=== PATIENT | male | born 1995 | race Caucasian/White ===

== ENCOUNTER 2018-12-01 15:35 | Emergency (ER) | payer BC ==
[2018-12-01 17:15] LABS: ABS Eosinophils 0.1 10^3/ul (0-0.6); ABS Lymphocytes 1.1 10^3/ul (1.0-4.8); ABS Monocytes 0.4 10^3/ul (0-0.8); ABS Neutrophils 5.1 10^3/ul (1.5-7.7); Eosinophil % 1.4 %; Hematocrit 46 % (42-52); Hemoglobin 15.4 g/dL (14.0-18.0); Lymphocyte % 16.7 %; Mean Corpuscular HGB Conc 34 g/dL (31-36); Mean Corpuscular Hemoglobin 31 pg (27-31); Mean Corpuscular Volume 90 fL (80-94); Mean Platelet Volume 9.5 fL (7.4-10.4); Platelet Count 215 10^3/uL (150-450); Red Blood Count 5.05 10^6 /uL (4.18-5.48); Red Cell Distribution Width 13 % (10-15); White Blood Count 6.7 10^3/uL (3.5-10.8)
[2018-12-01 17:26] LABS: Albumin 4.9 g/dL (3.2-5.2); Albumin/Globulin Ratio 1.9 (1-3); Calcium 9.5 mg/dL (8.6-10.3); EGFR African American 106.6 (>60); EGFR Non-African American 88.1 (>60); Globulin 2.6 g/dL (2-4); Potassium 3.8 mmol/L (3.5-5.0); Total Bilirubin 0.3 mg/dL (0.2-1.0); Total Protein 7.5 g/dL (6.4-8.9)
--- NOTE | 2018-12-01 19:19 | ED ---
Dizziness - HPI Summary HPI Summary: This patient is a 22 year old M presenting to [facility] accompanied by his mother with a chief complaint of room-spinning dizziness since 3 days ago. Pt states he could not walk down the [place] and did not feel good. His mother took the pt to urgent care to examine his ears since he has hx of ear infection (back in October) and he was told he may have some fluid on his ears. Pt reports symptoms were persistent. The episodes have not stopped since onset and worsened since yesterday. He does get mild relief when laying still. The patient rates the pain 3/10 in severity. Symptoms aggravated by movement. Symptoms alleviated by rest. Patient denies ringing in his ear, numbness or weakness of extremities. 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 - Allergies/Home Medications Allergies/Adverse Reactions: Allergies Allergy/AdvReac Type Severity Reaction Status Date / Time azithromycin Allergy Unknown Verified 12/01/18 15:45 Reaction Details clarithromycin [From Biaxin] Allergy Unknown Verified 12/01/18 15:45 Reaction Details salomón Allergy Unknown Uncoded 12/01/18 15:45 Reaction Details Home Medications: Home Medications Fluticasone NASAL SPRAY 50MCG* [Flonase NASAL SPRAY 50MCG*] 2 spray BOTH NARES BID 12/01/18 [History Confirmed 12/01/18] Meclizine TAB* [Antivert 12.5 TAB*] 25 mg PO TID PRN 12/01/18 [History Confirmed 12/01/18] Pseudoephedrine HCL ER TAB* [Sudafed 12 Hour*] 120 mg PO BID PRN 12/01/18 [ History Confirmed 12/01/18] PMH/Surg Hx/FS Hx/Imm Hx Previously Healthy: No Cardiovascular History: Denies: Hx Aneurysm GI History: Denies: Hx Cirrhosis Musculoskeletal History: Denies: Hx Arthritis Sensory History: Denies: Hx Deafness EENT History: Denies: Hx Deafness - Surgical History Surgical History: None - Immunization History Immunizations Up to Date: Yes Infectious Disease History: No Infectious Disease History: Denies: Traveled Outside the [place] in Last 30 Days - Family History Known Family History: Positive: None - Social History Alcohol Use: None Substance Use Type: Reports: None Hx Tobacco Use: No Smoking Status (MU): Never Smoked Tobacco Do You Chew or Dip Tobacco: No Have You Chewed or Dipped Tobacco in the LAST YEAR: No Have You Smoked in the Last Year: No Review of Systems ENT: Other - negative - ringing in ear Neurological: Other - positive - room-spinning dizziness Positive: Slurred Speech - in extremities. Negative: Numbness - in All Other Systems Reviewed And Are Negative: Yes Physical Exam - Summary Physical Exam Summary: Constitutional: Well-developed, Well-nourished, Alert. (-) Distressed Skin: Warm, Dry HENT: Normocephalic; Atraumatic, R sided horizontal and vertical nystagmus. Eyes: Conjunctiva normal Neck: Musculoskeletal ROM normal neck. (-) JVD, (-) Nuchal rigidity Cardio: Rhythm regular, rate normal, Heart sounds normal; Intact distal pulses; Radial pulses are 2+ and symmetric. (-) Murmur Pulmonary/Chest wall: Effort normal. (-) Respiratory distress, (-) Wheezes, (-) Rales Abd: Soft. (-) Tenderness, (-) Distension, (-) Guarding, (-) Rebound Musculoskeletal: (-) Edema Lymph: (-) Cervical adenopathy Neuro: Alert, PERRL, Oriented x3, Strength normal, Cranial nerves II-XII are grossly intact. SILT, Strength 5/5 BUE and BLE, (-) Dysmetria, (+) rightward and upward nystagmus, ambulates w steady gait. Psych: Mood and affect Normal Triage Information Reviewed: Yes Vital Signs On Initial Exam: Initial Vitals Temp Pulse Resp BP Pulse Ox 98.4 F 69 16 149/86 99 12/01/18 15:40 12/01/18 15:40 12/01/18 15:40 12/01/18 15:40 12/01/18 15:40 Vital Signs Reviewed: Yes Diagnostics - Vital Signs Vital Signs Temp Pulse Resp BP Pulse Ox 12/01/18 17:27 98.3 F 70 16 140/76 100 12/01/18 15:40 98.4 F 69 16 149/86 99 - Laboratory Lab Results: Lab Results 12/01/18 12/01/18 Range/Units 16:49 16:49 WBC 6.7 (3.5-10.8) 10^3/uL RBC 5.05 (4.18-5.48) 10^6 /uL Hgb 15.4 (14.0-18.0) g/dL Hct 46 (42-52) % MCV 90 (80-94) fL MCH 31 (27-31) pg MCHC 34 (31-36) g/dL RDW 13 (10-15) % Plt Count 215 (150-450) 10^3/uL MPV 9.5 (7.4-10.4) fL Neut % (Auto) 75.2 % Lymph % (Auto) 16.7 % Pope % (Auto) 6.1 % Eos % (Auto) 1.4 % Baso % (Auto) 0.6 % Absolute Neuts (auto) 5.1 (1.5-7.7) 10^3/ul Absolute Lymphs (auto) 1.1 (1.0-4.8) 10^3/ul Absolute Monos (auto) 0.4 (0-0.8) 10^3/ul Absolute Eos (auto) 0.1 (0-0.6) 10^3/ul Absolute Basos (auto) 0.0 (0-0.2) 10^3/ul Absolute Nucleated RBC 0.0 10^3/ul Nucleated RBC % 0.0 Sodium 139 (135-145) mmol/L Potassium 3.8 (3.5-5.0) mmol/L Chloride 105 (101-111) mmol/L Carbon Dioxide 28 (22-32) mmol/L Anion Gap 6 (2-11) mmol/L BUN 16 (6-24) mg/dL Creatinine 1.07 (0.67-1.17) mg/dL Est GFR ( Amer) 106.6 (>60) Est GFR (Non-Af Amer) 88.1 (>60) BUN/Creatinine Ratio 15.0 (8-20) Glucose 115 H (70-100) mg/dL Calcium 9.5 (8.6-10.3) mg/dL Total Bilirubin 0.30 (0.2-1.0) mg/dL AST 23 (13-39) U/L ALT 35 (7-52) U/L Alkaline Phosphatase 70 (34-104) U/L Total Protein 7.5 (6.4-8.9) g/dL Albumin 4.9 (3.2-5.2) g/dL Globulin 2.6 (2-4) g/dL Albumin/Globulin Ratio 1.9 (1-3) Result Diagrams: 12/01/18 16:49 12/01/18 16:49 Lab Statement: Any lab studies that have been ordered have been reviewed, and results considered in the medical decision making process. - CT Brain CT Interpretation Completed By: Radiologist Summary of CT Findings: IMPRESSION: No acute intracranial abnormality. These findings were reviewed by Dr. Briseno. Re-Evaluation - Re-Evaluation First Eval Change: Improved - feels slightly better w meclizine. Gene performed w mild resolution of symptoms. Will have him follow up w neurology outpatient PRN. Dizzy Course/Dx - Course Course Of Treatment: 22 y/o male presents with vertigo for several days worsening. Physical exam w well-appearing male, has right-sided horizontal nystagmus as well as vertical nystagmus. Ambulated with steady gait, no dysmetria on exam. Given persistent worsening symptoms discuss with mother head CT she would like to proceed with that. I suspect this is likely BPPV we ll give IV fluids meclizine and try Gene maneuver. Vertigo: Most likely BPPV. Differential includes Menniere's - no tinnitis, not lasting hours, labyrinthitis - no h/o infectious symptoms, no tinnitus - Diagnoses Provider Diagnoses: Vertigo Discharge ED - Sign-Out/Discharge Documenting (check all that apply): Patient Departure - discharge Patient Received Moderate/Deep Sedation with Procedure: No - Discharge Plan Condition: Stable Disposition: HOME Patient Education Materials: Vertigo (ED), Benign Paroxysmal Positional Vertigo (ED) Referrals: [facility] [Outside] - 2 Days Robert Rya MD [Medical Doctor] - 2 Days Additional Instructions: You were seen in the emergency department for her to go. Your symptoms are likely consistent with peripheral vertigo, BPPV. You can take meclizine as needed for symptoms. If any studies were not completed at the time of discharge you will be called with the relevant results. Please follow up with Dr. Ray within 2-3 days. Please follow up with your primary care doctor in next 2-3 days and return to emergency department for worsening vertigo, vomiting, inability to walk, or concerning symptoms. It was a pleasure taking care of you today. - Billing Disposition and Condition Condition: STABLE Disposition: Home - Attestation Statements Document Initiated by Angel: Yes Documenting Scribe: Harpreet Nieves Provider For Whom Angel is Documenting (Include Credential): Dr. Luis Briseno MD Scribe Attestation: I, Harpreet Nieves, scribed for Dr. Luis Briseno MD on 12/03/18 at 0127. Scribe Documentation Reviewed: Yes Provider Attestation: The documentation as recorded by the Harpreet ji accurately reflects the service I personally performed and the decisions made by me, Dr. Luis Briseno MD Status of Scribe Document: Viewed
[2018-12-01] MEDS ORDERED: Meclizine TAB* 12.5 MG PO ONE (19:23)
[2018-12-01] MEDS ORDERED: NS 0.9% 1000 ML** 1,000 ML IV ONE (19:27)
[2018-12-01 21:01] VITALS: BP 141/80
== END 2018-12-01 21:48 | disposition home or self-care (01) ==
LOC: EDBD → ED 15:35
DX: R42 Dizziness and giddiness (principal); Z88.1 Allergy status to other antibiotic agents
CPT/HCPCS: 36415; 70450; 80053; 85025; 96360; 96361; 99282; A9270-GY